=== PATIENT | male | born 1995 | race Caucasian/White ===

== ENCOUNTER 2025-07-27 11:15 | Emergency (ER) | payer MEDICAID ==
[~2025-07-27] VITALS: Ht 180.3 cm; Wt 75.0 kg
[2025-07-27 11:28] VITALS: BP 166/98; PULSE 115; RESP 18; TEMP 97; O2SAT 98
--- NOTE | 2025-07-27 13:14 | Physician Documentation ---
History of Present Illness ~ Chief Complaint: Ear Pain Stated Complaint: EAR INFECTION Time Seen by MD: 12:11 HPI Patient is a very pleasant 29-year-old male that presents to the emergency department for evaluation of right-sided ear pain x1 day. Patient reports he has a previous history of ruptured tympanic membrane several years ago. Patient reports the pain feels similar. On examination the tympanic membrane is not ruptured but appears very edematous. Patient denies fever chills nausea vomiting diarrhea at this time. Patient denies any other symptoms at this time. Medication Reconciliation Allergies: Coded Allergies: No Known Allergies (Unverified , 07/27/25) Scheduled Amox Tr/Potassium Clavulanate 875/125 MG (Augmentin 875/125 MG), 1 TAB PO Q12H Amox Tr/Potassium Clavulanate 875/125 MG (Augmentin 875/125 MG), 1 TAB PO Q12H Review of Systems ROS As stated above in the HPI, otherwise all systems are reviewed and negative. Physical Exam Vital Signs: Temperature: 97.0, Heart Rate: 115, Respiratory Rate: 18, BP: 166/98, Pulse Oximetry: 98, Weight: 75.000 Physical Exam VITALS: Reviewed and as above. GENERAL: Alert, no apparent distress. HEENT: Normocephalic, atraumatic, PERRL, EOMI, dry mucosa, reveals erythema and edema noted to the right tympanic membrane. Oriented x4, No motor or sensory deficit PSYCH: Normal mood and affect, no agitation Progress Results/Orders Results/Orders Completed Orders - STEFANIE MCCLOUD [employer] Amox Tr/Potassium Clavulanate (Augmentin (07/27/25 13:50) Vital Signs 07/27/25 11:28 Temp 97.0 Pulse 115 Resp 18 B/P (MAP) 166/98 Pulse Ox 98 Medical Decision Making Additional information obtaine: other Findings Medical Decision-Making (MDM) Note: 29-year-old male presented with acute right-sided ear pain for one day. History notable for prior tympanic membrane rupture several years ago, with current pain described as similar. On exam, tympanic membrane is edematous but intact; no rup ture or otorrhea observed. No fever, chills, nausea, vomiting, or diarrhea. No other symptoms reported. Differential diagnosis considered: Acute otitis externa (AOE): Supported by rapid onset, ear pain, and edematous canal. Acute otitis media (AOM): Less likely given absence of fever, otorrhea, and intact tympanic membrane, but tympanic membrane edema noted. Other causes of otalgia (e.g., referred pain, trauma) considered but less likely based on history and exam. Reis modifying factors: Prior history of tympanic membrane rupture increases risk for complications and influences choice of topical therapy. No evidence of immunocompromise, diabetes, or extension beyond the ear canal. Management: Analgesia recommended for symptomatic relief, as pain is a primary concern and should be addressed regardless of antibiotic use. Topical therapy indicated for uncomplicated AOE; however, due to history of prior tympanic membrane rupture, a non-ototoxic topical preparation should be selected if topical therapy is initiated. Systemic antibiotics not indicated at this time, as there is no evidence of extension beyond the ear canal or host factors requiring systemic therapy. Patient education provided regarding administration of topical drops, signs of worsening infection, and need for follow-up if symptoms persist or worsen within 48-72 hours.[1][3][5] Disposition: Patient stable for discharge. Advised to monitor for fever, worsening pain, otorrhea, hearing loss, or other new symptoms. Return precautions discussed. Outpatient follow-up recommended if symptoms do not improve or if complications arise. Clinical reasoning and management are consistent with current guidelines for acute otitis externa and otitis media. Ear Diff. Dx: Considerations: Include: Abrasion, Cerumen impaction, Foreign body, Otitis externa, Barotrauma, Otitis media, Perforation, Referred pain- dental, Referred pain-pharyngitis, Referred pain-sinusitis, Referred pain-TMJ syn., Tympanic Membrane Injury, Other Eye Diff. Dx: Considerations: Include: Chalazoin, Conjuctivits-allergic, Conjuctivitis-bacterial, Conjuctivits-chlamydial, Conjuctivitis-viral, Corneal abrasion, Corneal laceration, Corneal ulceration, Foreign body-conjuctiva, Foreign body-corneal, Foreign body-intraocular, Foreign body-lid, Glaucoma, Globe rupture, Hordeolum, Iritis, Orbital cellulitis, Periobital cellulitis, Retinal artery occulsion, Retinal vein occlusion, Rust ring, Subconjunctival hem, Ultraviolet keratitis, Uveitis, Vitreous hemorrhage, Other Nose Diff. Dx: Considerations: Include: Abrasion, Anterior nasal bleed, Avulsion, Contusion, Coagulopathy, Fracture-nasal bone, Fracture-septum, Hypertension, Laceration, Other, Posterior nasal bleed, Retained foreign body, Septal hematoma Tooth Diff. Dx: Considerations: Include: Alveolar fracture, Aveolar osteitis, ANUG, Facial cellulitis, Periapical abscess, Periodontal abscess, Post- extraction bleeding, Pulpitis, Trigeminal neuralgia, Tooth-avulsion, Tooth- eruption, Tooth-fracture, Tooth-subluxation, Other Throat Diff Dx: Considerations: Include: AIDS, Epiglottitis, Esophageal candidiasis, Hand foot mouth disease, Herpangina, Herpetic stomatitis, Herpes simplex, Infection mononucleosis, Immunodeficiency, Luciano's angina, Peritonsillar abscess, Peritonsillar cellulitis, Pharyngitis-diphtheria, Pharyngitis-strepococcal, Pharyngitis-viral, Thrush, URI, Other Departure Impression: Primary Impression: Acute otitis media Discharge Instructions: Otitis Media, Adult, Earache, Adult Additional Instructions: You came to the emergency department with right-sided ear pain. Your exam showed swelling of the eardrum, but it was not ruptured. You have a history of a ruptured eardrum in the past. You do not have fever or other concerning symptoms. What to do at home: Take pain medicine as needed. [id number] options like acetaminophen (Tylenol) or ibuprofen (Advil) can help with ear pain. These medicines are safe and effective for most people. Keep your ear dry. Avoid swimming and do not put water or objects in your ear canal. If you were prescribed ear drops, use them exactly as directed. Because of your history of a ruptured eardrum, only use drops that are safe for your ear. Do not use any drops unless your doctor told you they are safe for your ear. Do not use cotton swabs or try to clean inside your ear. Watch for these warning signs: Fever over 101F (38.3C) Worsening ear pain or swelling Drainage (fluid or pus) from your ear Hearing loss Dizziness, severe headache, or facial weakness If you notice any of these symptoms, or if your pain does not improve in 2-3 days, please return to the emergency department or contact your doctor. Follow-up: If your symptoms do not get better in a few days, or if you have new symptoms, schedule a follow-up visit with your healthcare provider. Questions? If you have any questions about your care or medicines, call your doctor or pharmacist. Take care and rest. Most ear pain gets better with time and simple care. Referrals: NO PRIMARY CARE PROVIDER (PCP) Prescriptions Amox Tr/Potassium Clavulanate 875/125 MG (Augmentin 875/125 MG) 875 Mg-125 Mg Tablet 1 TAB PO Q12H for 10 Days, #20 TAB Prov: STEFANIE MCCLOUD 07/27/25 Amox Tr/Potassium Clavulanate 875/125 MG (Augmentin 875/125 MG) 875 Mg-125 Mg Tablet 1 TAB PO Q12H for 10 Days, #20 TAB Prov: STEFANIE MCCLOUD 07/27/25 Education Educated: Patient Educated regarding: diagnosis, treatment, need for follow up Signature Scribe Signature: A Attestation: Scribed for Stefanie Mccloud by JAYLA Parnell . 07/27/25 13:55 STEFANIE MCCLOUD Jul 27, 2025 13:14
[2025-07-27] MEDS ORDERED: AMOX-580 PO (13:46)
[2025-07-27] MEDS: amox tr/potassium clavulanate 875/125mg TAB PO ONE (13:58)
== END 2025-07-27 14:04 | disposition home or self-care (01) ==
LOC: ER 11:16
DX: H66.91 Otitis media, unspecified, right ear (principal)
CPT/HCPCS: 99283